=== PATIENT | male | born 1965 | race Caucasian/White ===

== ENCOUNTER 2016-12-09 06:39 | Day surgery (SDC) | payer MEDICARE, OTHER ==
[~2016-12-09] VITALS: Ht 175.3 cm; Wt 87.9 kg
[~2016-12-09 06:39] MED LIST: ASPIRIN 32325 MG/TAB PO; BACTRIM DS 8001 TAB PO; CITALOPRAM10 MG PO; CRESTOR 10MG10 MG PO; KLOR-CON 1010 MEQ PO; LASIX20 MG PO; LOPRESSOR 225 MG/TAB PO; LORTAB 5/500 501 TAB PO; MUCINEX 60600 MG/TAB PO; NIACIN400 MG PO; NITROTAB0.4 MG SL; NORCO 325 MG-7.1 TAB PO; OMEGA 31000 MG PO; PERCOCET 325 MG1 TA2 PO; PLAVIX 75MG TAB75 MG PO; PREDNISONE20 MG PO; SYMBICORT1 AE1 IH; TYLENOL #3 301 UDTAB PO; ULTRAM50 MG PO
[2016-12-09 07:02] VITALS: BP 123/81; PULSE 54; TEMP 97.1
[2016-12-09] MEDS ORDERED: GLUCOPHAGE850 MG/TAB PO (07:08)
[2016-12-09] MEDS ORDERED: PROTONIX 40MG T40 MG PO (07:09)
[2016-12-09] MEDS ORDERED: ZEBETA 5MG5 MG PO (07:10)
[2016-12-09] MEDS ORDERED: MASON NATURAL1200 MG PO (07:11)
[2016-12-09 08:10] VITALS: BP 128/82; PULSE 57; TEMP 97
[2016-12-09 08:23] VITALS: BP 117/83; PULSE 54
[2016-12-09 08:40] VITALS: BP 104/71; PULSE 50
== END 2016-12-09 08:45 | disposition home or self-care (01) ==
LOC: SDCO 06:39
DX: Z12.11 Encounter for screening for malignant neoplasm of colon (principal); I10 Essential (primary) hypertension; K57.81 Diverticulitis of intestine, part unspecified, with perforation and abscess with bleeding; Z79.84 Long term (current) use of oral hypoglycemic drugs; Z87.11 Personal history of peptic ulcer disease; Z80.0 Family history of malignant neoplasm of digestive organs
CPT/HCPCS: OP; J2250; J2405; J3010; J7030

== ENCOUNTER 2016-12-25 22:46 | Emergency (ER) | payer MEDICARE, OTHER ==
[~2016-12-25] VITALS: Ht 175.3 cm; Wt 88.6 kg
[~2016-12-25 22:46] MED LIST changes: +GLUCOPHAGE850 MG/TAB PO; +MASON NATURAL1200 MG PO; +PROTONIX 40MG T40 MG PO; +ZEBETA 5MG5 MG PO
[2016-12-25 22:49] VITALS: BP 138/84; TEMP 97.7
[2016-12-26] MEDS ORDERED: NORCO 325 MG-51 TAB PO (00:35)
[2016-12-26 00:51] VITALS: PULSE 60
== END 2016-12-26 00:52 | disposition home or self-care (01) ==
LOC: COL.ER 22:46
DX: M54.32 Sciatica, left side (principal); Z87.39 Personal history of other diseases of the musculoskeletal system and connective tissue
CPT/HCPCS: J1170; J1885

== ENCOUNTER → 2017-02-01 | Outpatient (CLI) | payer MEDICARE, OTHER ==
[~2017-02-01] MED LIST changes: +NORCO 325 MG-51 TAB PO
== END ==
LOC: COL.RAD 10:50
DX: M47.817 Spondylosis without myelopathy or radiculopathy, lumbosacral region (principal); M48.02 Spinal stenosis, cervical region

== ENCOUNTER → 2019-05-14 | Outpatient (CLI) | payer MEDICARE, OTHER | LOC: COL.RAD 11:06 | DX: I71.2 Thoracic aortic aneurysm, without rupture (principal); J98.4 Other disorders of lung; Z98.1 Arthrodesis status | CPT/HCPCS: Q9967 ==

== ENCOUNTER → 2020-06-22 | Outpatient (CLI) | payer MEDICARE, OTHER | LOC: COL.RAD 07:22 | DX: I71.2 Thoracic aortic aneurysm, without rupture (principal); K80.20 Calculus of gallbladder without cholecystitis without obstruction | CPT/HCPCS: Q9967 ==

== ENCOUNTER → 2021-06-23 | Outpatient (CLI) | payer MEDICARE, OTHER ==
[2021-06-23 11:30] LABS: CALCIUM 9.5 mg/dL (8.4-10.2); CREATININE, serum 0.94 mg/dL (0.72-1.25); POTASSIUM 4.1 mmol/L (3.5-4.5)
== END ==
LOC: COL.RAD 10:05
PROVIDERS: Nurse Practitioner
DX: I77.810 Thoracic aortic ectasia (principal); K80.20 Calculus of gallbladder without cholecystitis without obstruction; K44.9 Diaphragmatic hernia without obstruction or gangrene; K21.9 Gastro-esophageal reflux disease without esophagitis; K76.0 Fatty (change of) liver, not elsewhere classified
CPT/HCPCS: Q9967

== ENCOUNTER → 2022-08-05 | Outpatient (CLI) | payer MEDICARE, OTHER | LOC: COL.RAD 08-04 15:00 | DX: I77.810 Thoracic aortic ectasia (principal); K76.0 Fatty (change of) liver, not elsewhere classified; K80.20 Calculus of gallbladder without cholecystitis without obstruction | CPT/HCPCS: Q9967 ==

== ENCOUNTER 2024-01-14 13:28 | Emergency (ER) | payer MEDICARE, OTHER ==
[~2024-01-14] VITALS: Ht 175.3 cm; Wt 88.6 kg
[2024-01-14 13:34] VITALS: TEMP 97.8
[2024-01-14] MEDS ORDERED: Morphine 4 MG/ML VIAL IV PRN (13:45)
[2024-01-14] MEDS ORDERED: Ondansetron 4 MG/2 ML VIAL IV ONE (13:45)
[2024-01-14] MEDS ORDERED: Aspirin 325 MG TAB PO ONE (13:45)
[2024-01-14 13:52] LABS: BASO # 0.1 K/mm3 (0.0-0.2); BASO % 0.7 % (0.0-2.0); EOS # 0.3 K/mm3 (0.0-0.7); EOS % 2.4 % (0.0-4.0); GRAN # 5.7 K/mm3 (1.4-6.5); GRAN % 47.7 % (42.2-75.2); HEMATOCRIT 45.6 % (42.0-52.0); HEMOGLOBIN 16.2 g/dl (13.5-18.0); LYMPH # 4.8 K/mm3 (1.2-3.4); LYMPH % 40.4 % (20.0-51.0); MEAN CELL VOLUME 87 fl (80.0-100.0); MEAN CORPUSCULAR HEMOGLOBIN 31 pg (27-31); MEAN CORPUSCULAR HGB CONC 36 g/dl (33.0-37.0); MEAN PLATELET VOLUME 9.1 fl (7.4-10.4); MONO % 8.6 % (1.7-9.3); PLATELET COUNT 256 K/mm3 (130-400); RED BLOOD COUNT 5.22 M/mm3 (4.20-5.60); REDCELL DISTRIBUTION WIDTH-CV 12.8 % (11.5-14.5)
[2024-01-14 13:56] LABS: INR 0.9 (0.8-3.0); PROTHROMBIN TIME 10.4 SECONDS (9.7-12.8)
[2024-01-14 13:59] LABS: PARTIAL THROMBOPLASTIN TIME 30.2 SECONDS (26.0-37.0)
[2024-01-14 14:01] LABS: D-DIMER < 200.00 ng/mLDDu (200-230)
[2024-01-14 14:07] LABS: ALBUMIN 4.4 g/dL (3.5-5.0); BILIRUBIN,TOTAL 0.9 mg/dL (0.2-1.2); CALCIUM 9.7 mg/dL (8.4-10.2); CREATININE, serum 0.98 mg/dL (0.72-1.25); TOTAL PROTEIN 7.8 g/dl (6.2-8.1)
[2024-01-14] MEDS ORDERED: NS 1,000 ML IV ONE (14:15)
[2024-01-14 14:21] LABS: TROPONIN-I 0.096 ng/mL (0.00-0.033)
[2024-01-14] MEDS ORDERED: Iohexol 300 - 100 ML VIAL IV ONE (14:54)
[2024-01-14] MEDS ORDERED: NS 100 ML IV SCH (14:54)
[2024-01-14] MEDS ORDERED: Heparin 5,000 UNITS/ML 1 ML VIAL IV PRN (15:15)
[2024-01-14] MEDS ORDERED: Heparin/D5W 250 ML IV SCH (15:15)
[2024-01-14] MEDS ORDERED: Heparin 5,000 UNITS/ML 1 ML VIAL IV ONE (15:15)
[2024-01-14] MEDS ORDERED: Nitroglycerin/D5W 250 ML IV ONE (15:45)
[2024-01-14] MEDS ORDERED: EPA FISH OIL1 SGL PO (15:52)
[2024-01-14] MEDS ORDERED: LIPITOR 40MG TA40 MG PO (15:52)
[2024-01-14] MEDS ORDERED: ZEBETA 5MG5 MG PO (15:52)
[2024-01-14] MEDS ORDERED: GLUCOPHAGE1000 MG PO (15:53)
[2024-01-14 18:35] VITALS: BP 126/74; PULSE 62
== END 2024-01-14 18:35 | disposition short-term general hospital (02) ==
LOC: COL.ER 13:28
PROVIDERS: Family Medicine
DX: I21.4 Non-ST elevation (NSTEMI) myocardial infarction (principal); E11.9 Type 2 diabetes mellitus without complications
CPT/HCPCS: J1644; J2270; J2305; J2405; J7030; Q9967